=== PATIENT | male | born 1980 | race African-American/Black ===

== ENCOUNTER 2017-01-05 22:04 | Emergency (ER) | payer OTHER ==
[~2017-01-05] VITALS: Ht 172.7 cm; Wt 63.5 kg
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
== END 2017-01-07 23:38 | disposition home or self-care (01) ==
LOC: CED 22:04
DX: S00.03XA Contusion of scalp, initial encounter (principal); S00.81XA Abrasion of other part of head, initial encounter; S70.211A Abrasion, right hip, initial encounter; F17.200 Nicotine dependence, unspecified, uncomplicated; W19.XXXA Unspecified fall, initial encounter; Y92.410 Unspecified street and highway as the place of occurrence of the external cause
CPT/HCPCS: 70450; 72125; 99284